=== PATIENT | male | born 1990 | race African-American/Black ===

== ENCOUNTER 2021-08-31 13:46 | Emergency (ER) | payer MEDICAID ==
[~2021-08-31] VITALS: Ht 185.4 cm; Wt 100.0 kg
[2021-08-31] MEDS ORDERED: MORPHINE SULFATE 4 MG/ML CPJ (NOT FOR IM USE) IV ONE (14:30)
[2021-08-31] MEDS ORDERED: LIDOCAINE HCL 2%/EPINEPHRINE/PF 10 ML VIAL INFIL ONE (14:30)
[2021-08-31] MEDS ORDERED: LIDOCAINE HCL 1% 20ML VIAL (Pyxis) INJ INFIL ONE (14:30)
[2021-08-31 15:26] VITALS: BP 154/80
[2021-08-31] MEDS ORDERED: TETANUS, DIPHTHERIA, PERTUSSIS VAC/PF 0.5ML (>10YR OLD) IM ONE (16:00)
[2021-08-31] MEDS ORDERED: BACITRACIN ZINC OINT UDPKT TOP NR (17:00)
[2021-08-31] MEDS ORDERED: IBUP-2028 MT (17:52)
[2021-08-31] MEDS ORDERED: TOPUD PO (17:52)
== END 2021-08-31 18:29 | disposition home or self-care (01) ==
LOC: ER 13:46
DX: S52.591A Other fractures of lower end of right radius, initial encounter for closed fracture (principal); S52.611A Displaced fracture of right ulna styloid process, initial encounter for closed fracture; S62.616A Displaced fracture of proximal phalanx of right little finger, initial encounter for closed fracture; S61.411A Laceration without foreign body of right hand, initial encounter; R03.0 Elevated blood-pressure reading, without diagnosis of hypertension; V49.49XA Driver injured in collision with other motor vehicles in traffic accident, initial encounter; Y93.89 Activity, other specified; Y92.488 Other paved roadways as the place of occurrence of the external cause; M79.644 Pain in right finger(s)
CPT/HCPCS: 25605; 73090; 73110; 73140; 90471; 90715; 96374; 99284; J2270; J3490